=== PATIENT | male | born 1950 | race Caucasian/White ===

== ENCOUNTER → 2016-06-11 | Outpatient (CLI) | payer OTHER ==
--- NOTE | 2016-06-14 11:58 | US ---
Ultrasound Abdomen Retroperitoneal, Limited History: Follow-up borderline aneurysmal dilatation of the upper abdominal aorta. Technique: Transabdominal longitudinal and transverse ultrasound imaging of the abdominal aorta. Comparison to prior ultrasound study from 12/01/2015. Findings: Proximal aorta measures 3 x 3 cm (transverse) Mid aorta measures 2.5 x 2.3 cm (transverse) Distal aorta measures 2.2 x 1.9 cm (transverse) Right common iliac artery measures 1.7 x 1.4 cm (transverse) Left common iliac artery measures 1.4 x 1.3 cm (transverse) There is a mild amount of partially calcified plaque involving the posterior wall of the distal abdom inal aorta. Impression: 1. 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 There is normal ta pering distally. 2. Mild atherosclerotic partially calcified plaque posterior wall distal abdominal aorta.
== END ==
LOC: BMCIMAGING 07:53
PROVIDERS: ATTEND Internal Medicine
DX: I71.4 Abdominal aortic aneurysm, without rupture (principal)

== ENCOUNTER → 2017-06-13 | Outpatient (CLI) | payer OTHER, MEDICARE | LOC: BMCIMAGING 07:15 | PROVIDERS: ATTEND Internal Medicine | DX: I70.0 Atherosclerosis of aorta (principal) ==

== ENCOUNTER → 2017-06-15 | Outpatient (CLI) | payer OTHER, MEDICARE | LOC: FCPNEURO 21:30 | PROVIDERS: ATTEND Student in an Organized Health Care Education/Training Program | DX: G47.33 Obstructive sleep apnea (adult) (pediatric) (principal) ==

== ENCOUNTER → 2017-07-27 | Outpatient (CLI) | payer OTHER, MEDICARE | LOC: BMCIMAGING 08:48 | PROVIDERS: ATTEND Family Medicine | DX: J98.4 Other disorders of lung (principal) ==

== ENCOUNTER → 2018-03-30 | Outpatient (CLI) | payer OTHER, MEDICARE | LOC: FCPNEURO 21:00 | PROVIDERS: ATTEND Student in an Organized Health Care Education/Training Program | DX: G47.33 Obstructive sleep apnea (adult) (pediatric) (principal) ==

== ENCOUNTER → 2018-05-22 | Outpatient (CLI) | payer OTHER, MEDICARE | LOC: BHFA 11:30 | PROVIDERS: ATTEND Internal Medicine Cardiovascular Disease | DX: I71.9 Aortic aneurysm of unspecified site, without rupture (principal) ==

== ENCOUNTER → 2018-06-14 | Outpatient (CLI) | payer OTHER, MEDICARE | LOC: BMCIMAGING 08:51 | PROVIDERS: ATTEND Internal Medicine | DX: I77.811 Abdominal aortic ectasia (principal) ==

== ENCOUNTER → 2018-10-23 | Outpatient (CLI) | payer OTHER, MEDICARE | LOC: BHFA 09:00 ==